=== PATIENT | female | born 1990 | race Caucasian/White ===

== ENCOUNTER 2020-07-22 08:02 | Inpatient (IN) | payer OTHER ==
[2020-07-22] MEDS ORDERED: Methylergonovine 0.2 MG/1 ML Amp IM PRN (10:55)
[2020-07-22] MEDS ORDERED: Misoprostol 200 MCG Tab PO PRN (10:55)
[2020-07-22] MEDS ORDERED: Water For Irrigation,Sterile 1,000 ML Container IRR PRN (10:55)
[2020-07-22] MEDS ORDERED: Nalbuphine 10 MG/1 ML Vial IVPUSH PRN (10:55)
[2020-07-22] MEDS ORDERED: Carboprost Tromethamine 250 MCG/1 ML Amp IM PRN (10:55)
[2020-07-22] MEDS ORDERED: Sodium Chloride 0.9% 10 ML Syringe FLUSH PRN (10:55)
[2020-07-22] MEDS ORDERED: Sodium Chloride 0.9% 10 ML SDV IV PRN (10:55)
[2020-07-22] MEDS ORDERED: Butorphanol 1 MG/ML SDV IVPUSH PRN (10:55)
[2020-07-22] MEDS ORDERED: Sodium Chloride 0.9% 2.5 ML Syringe FLUSH PRN (10:55)
[2020-07-22] MEDS ORDERED: Tranexamic Acid 1,000 MG in Sodium Chloride 0.9% 100 ML IV PRN (10:55)
[2020-07-22] MEDS ORDERED: Lidocaine 1% 50 ML MDV INJECT PRN (10:55)
[2020-07-22] MEDS ORDERED: Oxytocin/0.9 % Sodium Chloride 30 UNIT/500 ML BAG IV SCH (11:00)
[2020-07-22] MEDS: Lactated Ringers 1,000 ML IV SCH ×2 (14:48→15:28)
[2020-07-22] MEDS ORDERED: fentaNYL 100 MCG/2 ML SDV ONE (15:18)
[2020-07-22] MEDS ORDERED: Ropivacaine HCl/PF 100 ML ONE (15:18)
--- NOTE | 2020-07-22 15:39 | PCM.PREANE ---
Preanesthetic Assessment - Anesthesia/Transfusion/Family Hx Anesthesia History: Prior Anesthesia Without Reaction Family History of Anesthesia Reaction: No Transfusion History: No Prior Transfusion(s) - Physical Assessment NPO Status Date: 07/22/20 NPO Status Time: 10:00 Height: 1.78 m Weight: 97.522 kg ASA Class: 2 - Lab Values: Laboratory Last Values WBC 12.83 K/uL (4.0-11.0) H 07/22/20 10:53 RBC 4.66 M/uL (4.30-5.90) 07/22/20 10:53 Hgb 12.8 g/dL (12.0-16.0) 07/22/20 10:53 Hct 40.0 % (36.0-46.0) 07/22/20 10:53 MCV 85.8 fL (80.0-98.0) 07/22/20 10:53 MCH 27.5 pg (27.0-32.0) 07/22/20 10:53 MCHC 32.0 g/dL (31.0-37.0) 07/22/20 10:53 RDW Std Deviation 48.3 fl (28.0-62.0) 07/22/20 10:53 RDW Coeff of Richard 16 % (11.0-15.0) H 07/22/20 10:53 Plt Count 388 K/uL (150-400) 07/22/20 10:53 MPV 10.20 fL (7.40-12.00) 07/22/20 10:53 Nucleated RBC % 0.0 /100WBC 07/22/20 10:53 Nucleated RBCs # 0 K/uL 07/22/20 10:53 SARS-CoV-2 RNA (ESTHER) NEGATIVE (NEGATIVE) 07/22/20 09:22 Blood Type B POSITIVE 07/22/20 10:53 Antibody Screen NEGATIVE 07/22/20 10:53 - Allergies Allergies/Adverse Reactions: Allergies Allergy/AdvReac Type Severity Reaction Status Date / Time No Known Allergies Allergy Verified 07/22/20 09:03 - Acknowledgements Anesthesia Type Planned: Epidural Pt an Appropriate Candidate for the Planned Anesthesia: Yes Alternatives and Risks of Anesthesia Discussed w Pt/Guardian: Yes Pt/Guardian Understands and Agrees with Anesthesia Plan: Yes PreAnesthesia Questionnaire - SUBSTANCE USE Tobacco Use Status *Q: Never Tobacco User Recreational Drug Use History: No - HOME MEDS Home Medications: Home Meds Iron,Carbonyl/Ascorbic Acid [Iron 100-Vitamin C Tablet] 1 tab PO DAILY 07/22/20 [History] Letrozole 1 tab PO TID 07/22/20 [History] Levothyroxine 75 mcg PO ACBREAKFAST 07/22/20 [History] - CURRENT (IN HOUSE) MEDS Current Meds: Current Medications Butorphanol Tartrate (Stadol) 1 mg IVPUSH Q1H PRN PRN Reason: Pain Carboprost Tromethamine (Hemabate Ds) 250 mcg IM ASDIRECTED PRN PRN Reason: Post Hemorrhage Oxytocin/Sodium Chloride (Oxytocin 30 Unit/500 Ml-Ns) 30 unit in 500 mls @ 999 mls/hr IV TITRATE VISH Tranexamic Acid 1,000 mg/ (Sodium Chloride) 110 mls @ 660 mls/hr IV ONETIME PRN PRN Reason: Bleeding Lactated Ringer's (Ringers, Lactated) 1,000 mls @ 150 mls/hr IV ASDIRECTED VISH Last Admin: 07/22/20 15:28 Dose: 999 mls/hr Documented by: Lidocaine HCl (Xylocaine 1%) 50 ml INJECT ONETIME PRN PRN Reason: Laceration repair Methylergonovine Maleate (Methergine) 0.2 mg IM ASDIRECTED PRN PRN Reason: Post Hemorrhage Misoprostol (Cytotec) 200 mcg PO ONETIME PRN PRN Reason: Post Hemorrhage Nalbuphine HCl (Nubain) 10 mg IVPUSH Q1H PRN PRN Reason: Pain (severe 7-10) Sodium Chloride (Saline Flush) 10 ml FLUSH ASDIRECTED PRN PRN Reason: Keep Vein Open Sodium Chloride (Saline Flush) 2.5 ml FLUSH ASDIRECTED PRN PRN Reason: Keep Vein Open Sodium Chloride (Normal Saline) 10 ml IV ASDIRECTED PRN PRN Reason: IV Use Sterile Water (Sterile Water For Irrigation) 1,000 ml IRR ASDIRECTED PRN PRN Reason: delivery Discontinued Medications Fentanyl (Sublimaze) Confirm Administered Dose 100 mcg .ROUTE .STK-MED ONE Stop: 07/22/20 15:19 Ropivacaine (Naropin 0.2%) Confirm Administered Dose 100 mls @ as directed .ROUTE .STK-MED ONE Stop: 07/22/20 15:19
--- NOTE | 2020-07-22 15:42 | PCM.PRNOTE ---
- Free Text/Narrative Note: Anes Note Patient requests epidural for L&D. Sitting sterile technique. Chloraprep scrub to lumbar area. Level L3-L4 midline approach. Sterile fenstrated drape applied. Epidural space easily achieved single attempt with ease. JOSE ALFREDO at 3 cm. Cath threaded 6 cm with ease. Cath secured using sterile clear adhesive dressing. Test 1527 3 cc 1.5% lido with epi negative. 1530 Load 10 cc 0.2% ropivicaine with 1 mcg cc fentanyl in slow divided doses. 1535 Pumps started with 90 cc same solution. Rate is 8 cc hr with 6 cc q 20 min prn bolus. Phani well. Time with patient [id number] Olu Clements [employer]
[2020-07-22] MEDS ORDERED: Docusate Sodium 100 MG Cap PO PRN (22:14)
[2020-07-22] MEDS ORDERED: Acetaminophen 500 MG Tab PO PRN (22:14)
[2020-07-22] MEDS ORDERED: Benzocaine/Menthol 20%-0.5% Spray 78 GM Cannister TOP PRN (22:14)
[2020-07-22] MEDS ORDERED: Lanolin 100% Cream 7 GM Tube TOP PRN (22:14)
[2020-07-22] MEDS ORDERED: oxyCODONE 5 MG Tab PO PRN (22:14)
[2020-07-22] MEDS ORDERED: Bisacodyl 10 MG Supp RECTAL PRN (22:14)
[2020-07-22] MEDS ORDERED: Ibuprofen 400 MG Tab PO PRN (22:14)
--- NOTE | 2020-07-23 01:11 | OR ---
SURGEON: Igor Watkins MD DATE OF PROCEDURE: 07/22/2020 INDICATION FOR PROCEDURE: A 29-year-old G1, P0, at 40 weeks and 5 days, admitted in early labor. Patient presented with regular strong contractions that were every 3 to 4 minutes. She was found to be 3 cm dilated. Membranes were intact. She was monitored for about 2 hours and made cervical change to 4 cm and continued to contract regularly. She was admitted to Labor and Delivery for early labor and her COVID-19 test was negative. Her was complicated by infertility from anovulation due to PCOS. She received letrozole for ovulation induction, which helped to conceive. Otherwise had uncomplicated . She is GBS negative. AROM was performed for augmentation. She had meconium-stained fluid. She received an epidural with pain control. She continued to progress and became fully dilated with the urge to push. She had consistently category 1 tracing throughout, with occasional early decels with contractions. PREOPERATIVE DIAGNOSIS: Hartman intrauterine at 40 weeks and 5 days. POSTOPERATIVE DIAGNOSIS: Hartman intrauterine at 40 weeks and 5 days. PROCEDURES PERFORMED: Normal spontaneous vaginal delivery, repair of right mediolateral episiotomy. ANESTHESIA: Epidural. ANESTHESIOLOGIST: Dr. Tiana Mock. FINDINGS: Viable male infant, score of 9 and 9, weight of 9 pounds. Amniotic fluid was meconium stained. EBL: 300 mL. DESCRIPTION OF PROCEDURE: The patient pushed with contractions for about an hour. The head was ; she had good pushing effort, however, she was having difficulty because the vaginal introitus had a tight band posteriorly. Therefore, a right mediolateral episiotomy was performed and the patient continued to push. The head delivered in occiput-anterior position, restituted ROT. Anterior shoulder delivered easily followed by posterior shoulder and remaining body. No nuchal cord was noted. The baby was placed on maternal chest and evaluated by awaiting nursery staff. The baby was pink, crying and moving all extremities right after delivery. The umbilical cord was clamped and cut after 60 seconds and no longer pulsating. Umbilical cord gases were obtained. The placenta initially did not separate; therefore, the perineum was examined and she had a second-degree laceration from the episiotomy. Repair was done with 3-0 Vicryl in usual fashion. Hemostasis was confirmed after the repair. The placenta was then gently removed with traction on the umbilical cord and fundal massage. It was intact with 3-vessel cord. Uterus was firm and below the umbilicus and the bleeding was light. The patient tolerated the procedure well, was given care instruction. LIZETTE MARCELO /[id number] MTDLucía
[2020-07-23] MEDS: Witch Hazel Medicated Pads 40/Jar TOP PRN (01:45)
[2020-07-23] MEDS: Ibuprofen 800 MG Tab PO PRN ×2 (02:01→14:07)
--- NOTE | 2020-07-23 06:58 | PCM48HPAN ---
Post Anesthesia Note - EVALUATION WITHIN 48HRS OF ANESTHETIC Vital Signs in Normal Range: Yes Patient Participated in Evaluation: Yes Respiratory Function Stable: Yes Airway Patent: Yes Cardiovascular Function Stable: Yes Hydration Status Stable: Yes Pain Control Satisfactory: Yes Nausea and Vomiting Control Satisfactory: Yes Mental Status Recovered: Yes Vital Signs: Last Vital Signs Temp 35.9 C L 07/23/20 04:01 Pulse 85 07/23/20 04:01 Resp 16 07/23/20 04:01 BP 102/62 07/23/20 04:01 Pulse Ox 95 07/23/20 04:01
[2020-07-23] MEDS: Acetaminophen 500 MG Tab PO PRN ×2 (07:31→23:51)
--- NOTE | 2020-07-23 13:33 | PCM.PNPP ---
- General Info Date of Service: 07/23/20 Functional Status: Reports: Pain Controlled, Tolerating Diet, Ambulating, Urinating - Review of Systems General: Reports: No Symptoms HEENT: Reports: No Symptoms Pulmonary: Reports: No Symptoms Cardiovascular: Reports: No Symptoms Gastrointestinal: Reports: No Symptoms Genitourinary: Reports: No Symptoms Musculoskeletal: Reports: No Symptoms Skin: Reports: No Symptoms Neurological: Reports: No Symptoms Psychiatric: Reports: No Symptoms - Patient Data Vital Signs - Most Recent: Last Vital Signs Temp 36.3 C 07/23/20 07:35 Pulse 75 07/23/20 07:35 Resp 16 07/23/20 07:35 BP 113/70 07/23/20 07:35 Pulse Ox 93 L 07/23/20 07:35 Weight - Most Recent: 215 lb Lab Results - Last 24 Hours: Laboratory Results - last 24 hr 07/22/20 07/23/20 Range/Units 21:41 05:32 Hgb 10.2 L (12.0-16.0) g/dL Hct 32.3 L (36.0-46.0) % Cord ABG pH 7.279 (7.18-7.38) Cord ABG Base Excess -5 (-10--2) Cord VBG pH 7.383 (7.25-7.45) Cord VBG Base Excess -3 (-10--2) Med Orders - Current: Current Medications Acetaminophen (Tylenol Extra Strength) 500 mg PO Q4H PRN PRN Reason: Pain Acetaminophen (Tylenol Extra Strength) 1,000 mg PO Q4H PRN PRN Reason: Pain Last Admin: 07/23/20 07:31 Dose: 1,000 mg Documented by: Benzocaine/Menthol (Dermoplast Pain Relief 20%-0.5% [place]) 78 gm TOP ASDIRECTED PRN PRN Reason: Perineal Comfort Measure Last Admin: 07/23/20 01:44 Dose: 1 canister Documented by: Bisacodyl (Dulcolax) 10 mg RECTAL ONETIME PRN PRN Reason: Constipation Butorphanol Tartrate (Stadol) 1 mg IVPUSH Q1H PRN PRN Reason: Pain Carboprost Tromethamine (Hemabate Ds) 250 mcg IM ASDIRECTED PRN PRN Reason: Post Hemorrhage Docusate Sodium (Colace) 100 mg PO BID PRN PRN Reason: Constipation Emollient Ointment (Lansinoh Hpa) 0 gm TOP ASDIRECTED PRN PRN Reason: Sore Nipples Oxytocin/Sodium Chloride (Oxytocin 30 Unit/500 Ml-Ns) 30 unit in 500 mls @ 999 mls/hr IV TITRATE [facility] Last Admin: 07/22/20 21:42 Dose: 500 mls/hr Documented by: Tranexamic Acid 1,000 mg/ (Sodium Chloride) 110 mls @ 660 mls/hr IV ONETIME PRN PRN Reason: Bleeding Lactated Ringer's (Ringers, Lactated) 1,000 mls @ 150 mls/hr IV ASDIRECTED [facility] Last Infusion: 07/22/20 15:45 Dose: 150 mls/hr Documented by: Ibuprofen (Motrin) 400 mg PO Q4H PRN PRN Reason: Pain Ibuprofen (Motrin) 800 mg PO Q6H PRN PRN Reason: Pain Last Admin: 07/23/20 02:01 Dose: 800 mg Documented by: Lidocaine HCl (Xylocaine 1%) 50 ml INJECT ONETIME PRN PRN Reason: Laceration repair Methylergonovine Maleate (Methergine) 0.2 mg IM ASDIRECTED PRN PRN Reason: Post Hemorrhage Misoprostol (Cytotec) 200 mcg PO ONETIME PRN PRN Reason: Post Hemorrhage Nalbuphine HCl (Nubain) 10 mg IVPUSH Q1H PRN PRN Reason: Pain (severe 7-10) Oxycodone HCl (Oxycodone) 5 mg PO Q2H PRN PRN Reason: Pain Sodium Chloride (Saline Flush) 10 ml FLUSH ASDIRECTED PRN PRN Reason: Keep Vein Open Sodium Chloride (Saline Flush) 2.5 ml FLUSH ASDIRECTED PRN PRN Reason: Keep Vein Open Sodium Chloride (Normal Saline) 10 ml IV ASDIRECTED PRN PRN Reason: IV Use Sterile Water (Sterile Water For Irrigation) 1,000 ml IRR ASDIRECTED PRN PRN Reason: delivery Witmaría elena Orosco (Tucks) 1 pad TOP ASDIRECTED PRN PRN Reason: comfort care Last Admin: 07/23/20 01:45 Dose: 1 container Documented by: Discontinued Medications Fentanyl (Sublimaze) Confirm Administered Dose 100 mcg .ROUTE .STK-MED ONE Stop: 07/22/20 15:19 Last Admin: 07/22/20 16:52 Dose: Not Given Documented by: Ropivacaine (Naropin 0.2%) Confirm Administered Dose 100 mls @ as directed .ROUTE .STK-MED ONE Stop: 07/22/20 15:19 Last Admin: 07/22/20 16:52 Dose: Not Given Documented by: - Interaction Disposition, : Adrian at Bedside Infant Interaction: Holding Feeding: Attempted ; Nursed Fair/Poor Support Person: - Recovery Exam Fundal Tone: Firm Fundal Level: 2 Fingerbreadths Below Umbilicus Fundal Placement: Midline Lochia Amount: Scant Lochia Color: Rubra/Red Perineum Description: Intact, Minimal Bruising/Swelling, Other (see below) Other Perinuem Description: right mediolateral episiotomy Episiotomy/Laceration: Approximated Bladder Status: Voiding - Exam General: Alert, Oriented, Cooperative, No Acute Distress HEENT: Pupils Equal, Pupils Reactive Neck: Supple, Trachea Midline Lungs: Normal Respiratory Effort GI/Abdominal Exam: Normal Bowel Sounds, Soft, Non-Tender, No Organomegaly, No Distention Extremities: Normal Inspection, Normal Range of Motion, Non-Tender, No Pedal Yohannes ma Skin: Warm, Dry, Intact Wound/Incisions: Healing Well Neurological: No New Focal Deficit Psy/Mental Status: Alert, Normal Affect, Normal Mood - Problem List Review Problem List Initiated/Reviewed/Updated: Yes - My Orders Last 24 Hours: My Active Orders 07/22/20 22:14 Patient Status [ADT] Routine May Shower [RC] ASDIRECTED Up ad Raven [RC] ASDIRECTED Vital Signs [RC] PER UNIT ROUTINE Acetaminophen [Tylenol Extra Strength] 1,000 mg PO Q4H PRN Acetaminophen [Tylenol Extra Strength] 500 mg PO Q4H PRN Benzocaine/Menthol [Dermoplast Pain Relief 20%-0.5% [place]] 78 gm TOP ASDIRECTED PRN Docusate Sodium [Colace] 100 mg PO BID PRN Ibuprofen [Motrin] 400 mg PO Q4H PRN Ibuprofen [Motrin] 800 mg PO Q6H PRN Lanolin [Lansinoh HPA] See Dose Instructions TOP ASDIRECTED PRN bisacodyL [Dulcolax] 10 mg RECTAL ONETIME PRN oxyCODONE 5 mg PO Q2H PRN mati Orosco [[place]] 1 pad TOP ASDIRECTED PRN Assess Lochia [WOMSER] Per Unit Routine Assess Uterine Involution [WOMSER] Per Unit Routine Breast Pump [WOMSER] Per Unit Routine Peripheral IV Discontinue [OM.PC] Routine 07/22/20 22:15 Ice Therapy [OM.PC] Per Unit Routine Perineal Care [OM.PC] Per Unit Routine Sitz Bath [OM.PC] Per Unit Routine 07/22/20 22:16 Cooling Warming Measures [RC] ASDIRECTED 07/23/20 Breakfast Regular Diet [DIET] - Assessment Assessment:: 29yo PPD1 s/p , stable and recovering well. -tolerating PO, ambulating - Hgb 10.2, bleeding light, no s/s of anemia - and pumping Plan for discharge home tomorrow
[2020-07-24] MEDS: Ibuprofen 800 MG Tab PO PRN (09:05)
[2020-07-24] MEDS: Acetaminophen 500 MG Tab PO PRN (10:40)
[2020-07-24] MEDS: Witch Hazel Medicated Pads 40/Jar TOP PRN (10:52)
--- NOTE | 2020-07-24 11:19 | PCM.PNPP ---
- General Info Date of Service: 07/24/20 Functional Status: Reports: Pain Controlled, Tolerating Diet, Ambulating, Urinating - Review of Systems General: Reports: No Symptoms HEENT: Reports: No Symptoms Pulmonary: Reports: No Symptoms Cardiovascular: Reports: No Symptoms Gastrointestinal: Reports: No Symptoms Genitourinary: Reports: No Symptoms Musculoskeletal: Reports: No Symptoms Skin: Reports: No Symptoms Neurological: Reports: No Symptoms Psychiatric: Reports: No Symptoms - Patient Data Vital Signs - Most Recent: Last Vital Signs Temp 36.4 C 07/24/20 07:25 Pulse 72 07/24/20 07:25 Resp 18 07/24/20 07:25 BP 121/67 07/24/20 07:25 Pulse Ox 97 07/24/20 07:25 Weight - Most Recent: 215 lb Med Orders - Current: Current Medications Acetaminophen (Tylenol Extra Strength) 500 mg PO Q4H PRN PRN Reason: Pain Acetaminophen (Tylenol Extra Strength) 1,000 mg PO Q4H PRN PRN Reason: Pain Last Admin: 07/24/20 10:40 Dose: 1,000 mg Documented by: Benzocaine/Menthol (Dermoplast Pain Relief 20%-0.5% [place]) 78 gm TOP ASDIRECTED PRN PRN Reason: Perineal Comfort Measure Last Admin: 07/23/20 01:44 Dose: 1 canister Documented by: Bisacodyl (Dulcolax) 10 mg RECTAL ONETIME PRN PRN Reason: Constipation Butorphanol Tartrate (Stadol) 1 mg IVPUSH Q1H PRN PRN Reason: Pain Carboprost Tromethamine (Hemabate Ds) 250 mcg IM ASDIRECTED PRN PRN Reason: Post Hemorrhage Docusate Sodium (Colace) 100 mg PO BID PRN PRN Reason: Constipation Emollient Ointment (Lansinoh Hpa) 0 gm TOP ASDIRECTED PRN PRN Reason: Sore Nipples Oxytocin/Sodium Chloride (Oxytocin 30 Unit/500 Ml-Ns) 30 unit in 500 mls @ 999 mls/hr IV TITRATE VISH Last Admin: 07/22/20 21:42 Dose: 500 mls/hr Documented by: Tranexamic Acid 1,000 mg/ (Sodium Chloride) 110 mls @ 660 mls/hr IV ONETIME PRN PRN Reason: Bleeding Lactated Ringer's (Ringers, Lactated) 1,000 mls @ 150 mls/hr IV ASDIRECTED VISH Last Infusion: 07/22/20 15:45 Dose: 150 mls/hr Documented by: Ibuprofen (Motrin) 400 mg PO Q4H PRN PRN Reason: Pain Ibuprofen (Motrin) 800 mg PO Q6H PRN PRN Reason: Pain Last Admin: 07/24/20 09:05 Dose: 800 mg Documented by: Lidocaine HCl (Xylocaine 1%) 50 ml INJECT ONETIME PRN PRN Reason: Laceration repair Methylergonovine Maleate (Methergine) 0.2 mg IM ASDIRECTED PRN PRN Reason: Post Hemorrhage Misoprostol (Cytotec) 200 mcg PO ONETIME PRN PRN Reason: Post Hemorrhage Nalbuphine HCl (Nubain) 10 mg IVPUSH Q1H PRN PRN Reason: Pain (severe 7-10) Oxycodone HCl (Oxycodone) 5 mg PO Q2H PRN PRN Reason: Pain Sodium Chloride (Saline Flush) 10 ml FLUSH ASDIRECTED PRN PRN Reason: Keep Vein Open Sodium Chloride (Saline Flush) 2.5 ml FLUSH ASDIRECTED PRN PRN Reason: Keep Vein Open Sodium Chloride (Normal Saline) 10 ml IV ASDIRECTED PRN PRN Reason: IV Use Sterile Water (Sterile Water For Irrigation) 1,000 ml IRR ASDIRECTED PRN PRN Reason: delivery Witmaría elena Swain (Tucks) 1 pad TOP ASDIRECTED PRN PRN Reason: comfort care Last Admin: 07/24/20 10:52 Dose: 1 container Documented by: Discontinued Medications Fentanyl (Sublimaze) Confirm Administered Dose 100 mcg .ROUTE .STK-MED ONE Stop: 07/22/20 15:19 Last Admin: 07/22/20 16:52 Dose: Not Given Documented by: Ropivacaine (Naropin 0.2%) Confirm Administered Dose 100 mls @ as directed .ROUTE .STK-MED ONE Stop: 07/22/20 15:19 Last Admin: 07/22/20 16:52 Dose: Not Given Documented by: - Interaction Disposition, : at Bedside Interaction: Holding Infant Infant Feeding: Breastfed ; Nursed Well Support Person: - Recovery Exam Fundal Tone: Firm Fundal Level: 1 Fingerbreadths Below Umbilicus Fundal Placement: Midline Lochia Amount: Scant, Small Lochia Color: Rubra/Red Perineum Description: Intact, Minimal Bruising/Swelling, Other (see below) Other Perinuem Description: right mediolateral episiotomy Episiotomy/Laceration: Approximated Bladder Status: Voiding - Exam General: Alert, Oriented, Cooperative, No Acute Distress HEENT: Pupils Equal, Pupils Reactive Neck: Supple, Trachea Midline, No JVD Lungs: Normal Respiratory Effort GI/Abdominal Exam: Soft, Non-Tender, No Organomegaly, No Distention Extremities: Normal Inspection, Normal Range of Motion, Non-Tender, No Pedal Edema Skin: Warm, Dry, Intact Neurological: No New Focal Deficit Psy/Mental Status: Alert, Normal Affect, Normal Mood - Problem List Review Problem List Initiated/Reviewed/Updated: Yes - My Orders Last 24 Hours: My Active Orders 07/24/20 10:59 Ready for Discharge [RC] PER UNIT ROUTINE - Assessment Assessment:: 29yo PPD2 s/p , stable and recovering well. - Plan Plan:: -tolerating PO, ambulating - Hgb 10.2, bleeding light, no s/s of anemia - and pumping, baby doing well Plan for discharge home today, reviewed care instructions
== END 2020-07-24 12:50 | disposition home or self-care (01) | DRG 807 ==
LOC: MW.OBCHECK 08:02 → MW.OB 08:03 → MW.OBCHECK 08:03 → MW.OB 08:58 → MW.OBCHECK 10:55 → OBSVTOIN 22:14 → MW.OB 07-23 04:06
PROVIDERS: ADMIT Obstetrics & Gynecology; ATTEND Obstetrics & Gynecology
PROC: 10E0XZZ Delivery of Products of Conception, External Approach (ICD-10-PCS; principal; 2020-07-22)
PROC: 0W8NXZZ Division of Female Perineum, External Approach (ICD-10-PCS; 2020-07-22)
PROC: 10907ZC Drainage of Amniotic Fluid, Therapeutic from Products of Conception, Via Natural or Artificial Opening (ICD-10-PCS; 2020-07-22)
PROC: 3E0R3BZ Introduction of Anesthetic Agent into Spinal Canal, Percutaneous Approach (ICD-10-PCS; 2020-07-22)
PROC: 00HU33Z Insertion of Infusion Device into Spinal Canal, Percutaneous Approach (ICD-10-PCS; 2020-07-22)
DX: O77.0 Labor and delivery complicated by meconium in amniotic fluid (principal); Z37.0 Single live birth; Z3A.40 40 weeks gestation of pregnancy
CPT/HCPCS: 36415; 51702; 59025; 59409; 82803; 85014; 85018; 85027; 86592; 86850; 86900; 86901; A9270-GY; J2590; J7120; U0002

== ENCOUNTER 2020-08-07 17:38 | Emergency (ER) | payer OTHER ==
[2020-08-07] MEDS ORDERED: Sodium Chloride 0.9% 1,000 ML IV ONE ×2 (18:07→20:24)
[2020-08-07] MEDS ORDERED: Ondansetron 4 MG/2 ML SDV IVPUSH ONE (18:07)
--- NOTE | 2020-08-07 18:21 | EDM.PDOC ---
ED HPI GENERAL MEDICAL PROBLEM - General Chief Complaint: Gastrointestinal Problem Stated Complaint: FEVER, SICK Time Seen by Provider: 08/07/20 18:03 Source of Information: Reports: Patient History Limitations: Reports: No Limitations - History of Present Illness INITIAL COMMENTS - FREE TEXT/NARRATIVE: HISTORY AND PHYSICAL: History of present illness: Patient is a 29-year-old female who presents to the emergency room with complaints of fever, body aches, chills and bilateral breast tenderness. Patient states that she had a vaginal delivery 2 weeks ago. She has been heali ng as expected. She has noticed that she has been having to pump as she is not producing as much milk as she is used to, breast tenderness and warmth bilaterally. She states she started to develop fevers, body aches and bilateral breast tenderness this afternoon. She did call her STENCILER who prescribed her Dicloxacillin, she has taken 1 dose although had been vomiting afterwards. Unsure how much medication she was able to keep down. Patient denies any headache, change in vision, syncope or near syncope. Denies any neck pain/stiffness, chest pain, back pain, shortness of breath or cough. Denies any abdominal pain, diarrhea, constipation or dysuria. Has not noted any blood in urine or stool. States she has had light spotting post vaginal delivery - no concerns of excess bleeding or discharge. Patient has been eating and drinking appropriately. Review of systems: As per history of present illness and below otherwise all systems reviewed and negative. Past medical history: As per history of present illness and as reviewed below otherwise noncontributory. Surgical history: As per history of present illness and as reviewed below otherwise noncontributory. Social history: See social history for further information Family history: As per history of present illness and as reviewed below otherwise noncontributory. Physical exam: General: Well developed and well nourished 29 year old female. Alert and orientated x 3. Nontoxic in appearance and in no acute distress. Vital signs are stable and have been reviewed by me. Nursing notes were reviewed. HEENT: Atraumatic, normocephalic, pupils equal and reactive bilaterally, negative for conjunctival pallor or scleral icterus, mucous membranes moist, TMs normal bilaterally, throat clear, neck supple, nontender, trachea midline. No drooling or trismus noted. No meningeal signs. No hot potato voice noted. Lungs: Clear to auscultation, breath sounds equal bilaterally, chest nontender. Normal work of breathing, no accessory muscles used. Heart: S1S2, regular rate and rhythm without overt murmur Abdomen: Soft, nondistended, nontender. Negative for masses or hepatosplenomegaly. Negative for costovertebral tenderness. Skin: Generally pale. Mild breast erythema bilaterally from the 4:00 to 7 o'clock position, tender to touch. No nipple abnormal drainage. Remaining skin is intact, warm, dry. No lesions or rashes noted. Hematologic: No petechiae or purpra. Mucosa appropriate color and normal nail bed color and refill. Extremities: Atraumatic, moves all extremities per self without difficulty or deficits, negative for cords or calf pain. Neurovascular unremarkable. Neuro: Awake, alert, oriented. Cranial nerves II through XII unremarkable. Cerebellum unremarkable. Motor and sensory unremarkable throughout. Exam nonfocal. Psychiatric: Mood and affect are appropriate. Normal thought process. Answering questions appropriately. Notes: Patient's abdomen is soft, nontender and she states she is healing from her vaginal delivery as expected. Will do basic lab work and give IV fluids/medications. Patient is agreeable to diagnostics. Patient has a slight leukocytosis. Will give her a dose of rocephin while here. Patient feels improved after the IV fluids, still has some nausea. Will give IM phenergan and then a PO challenge. VSS. Patient has been able to keep fluids and crackers down. She felt improved and wanted to be discharged to home. As the patient was getting up to attempt to give a urine sample she became lightheaded and felt near syncopal. We will keep her for further observation until she feels improved. I did have Dr Cifuentes look at this patient due to change in patient status, he is agreeable with plan of care. Patient continues to have a fever. Will give patient some Tylenol/Ibuprofe n and additional fluids. Will continue to monitor. Upon reassessment of the patient, she has improved. She is appropriate for discharge. Patient will remain on her antibiotic that Dr Watkins has prescribed, since she had only had one dose thus far. Script for Zofran. We discussed in great length signs and symptoms that would prompt her to return to the ED. She will follow up with her OBGYN on Sunday. She is agreeable to plan of care and denies any further questions or concerns at this time. Diagnostics: CBC, CMP, UA, Lactate, BC x2, COVID Therapeutics: IV fluids, Rocephin, Zofran, Phenergan IM Prescription: Zofran Impression: Mastitis, bilateral Plan: 1. Today your exam and lab work demonstrates mastitis. Please apply gentle heat, massage, and SUPPORTIVE sports bra for comfort. Continue pumping both breasts routinely. 2. Continue taking your antibiotic as directed. Alternate Tylenol and Ibuprofen to keep your fevers down. 3. We encourage you to follow up with Dr Watkins (OBGYN) in the next few days for re-evaluation and further care/management. 4. If your symptoms should worsen, new symptoms develop or any of the signs and symptoms we discussed should arise please return to the emergency room or call 911 (if needed). Definitive disposition and diagnosis as appropriate pending reevaluation and review of above. breasts Pain Score (Numeric/FACES): 6 - Related Data Allergies Allergy/AdvReac Type Severity Reaction Status Date / Time No Known Allergies Allergy Verified 08/07/20 17:52 Home Meds: Home Meds Iron,Carbonyl/Ascorbic Acid [Iron 100-Vitamin C Tablet] 1 tab PO DAILY 07/22/20 [History] Levothyroxine 75 mcg PO ACBREAKFAST 07/22/20 [History] Ibuprofen [Motrin] 600 mg PO Q6H PRN #20 tab 07/24/20 [Rx] Dicloxacillin 500 mg PO ASDIRECTED 08/07/20 [History] Ondansetron [Zofran ODT] 4 mg PO Q6H PRN #8 tab.dis 08/07/20 [Rx] Past Medical History - Past Health History Medical/Surgical History: Denies Medical/Surgical History Gastrointestinal History: Reports: None STENCILER History: Reports: Endocrine/Metabolic History: Reports: Hypothyroidism - Infectious Disease History Infectious Disease History: Reports: Chicken Pox - Past Surgical History GI Surgical History: Reports: Appendectomy Social & Family History - Family History OBGYN: Reports: Endocrine/Metabolic: Reports: Diabetes, type II Oncologic: Reports: Brain, Prostate - Caffeine Use Caffeine Use: Reports: None ED ROS GENERAL - Review of Systems Review Of Systems: Comprehensive ROS is negative, except as noted in HPI. ED EXAM, GENERAL - Physical Exam Exam: See Below (See dictation) Course - Vital Signs Last Recorded V/S: Last Vital Signs Temp 101.5 F H 08/07/20 21:01 Pulse 108 H 08/07/20 21:00 Resp 20 08/07/20 21:00 BP 107/63 08/07/20 21:00 Pulse Ox 95 08/07/20 21:00 - Orders/Labs/Meds Orders: Active Orders 24 hr Category Date Time Status CULTURE BLOOD [BC] Stat Lab 08/07/20 18:21 Received CULTURE BLOOD [BC] Stat Lab 08/07/20 18:25 Received Blood Culture x2 Reflex Set [OM.PC] Stat Oth 08/07/20 18:07 Ordered Labs: Laboratory Tests 08/07/20 08/07/20 08/07/20 Range/Units 17:47 17:47 17:47 WBC 12.51 H (4.0-11.0) K/uL RBC 5.14 (4.30-5.90) M/uL Hgb 14.0 (12.0-16.0) g/dL Hct 43.6 (36.0-46.0) % MCV 84.8 (80.0-98.0) fL MCH 27.2 (27.0-32.0) pg MCHC 32.1 (31.0-37.0) g/dL RDW Std Deviation 46.6 (28.0-62.0) fl RDW Coeff of Richard 15 (11.0-15.0) % Plt Count 328 (150-400) K/uL MPV 8.70 (7.40-12.00) fL Neut % (Auto) 93.5 H (48.0-80.0) % Lymph % (Auto) 2.9 L (16.0-40.0) % Adams % (Auto) 3.2 (0.0-15.0) % Eos % (Auto) 0.3 (0.0-7.0) % Baso % (Auto) 0.1 (0.0-1.5) % Neut # (Auto) 11.7 H (1.4-5.7) K/uL Lymph # (Auto) 0.4 L (0.6-2.4) K/uL Adams # (Auto) 0.4 (0.0-0.8) K/uL Eos # (Auto) 0.0 (0.0-0.7) K/uL Baso # (Auto) 0.0 (0.0-0.1) K/uL Nucleated RBC % 0.0 /100WBC Nucleated RBCs # 0 K/uL Lactate 1.5 (0.20-2.00) mmol/L Sodium 140 (136-145) mmol/L Potassium 3.3 L (3.5-5.1) mmol/L Chloride 101 (98-107) mmol/L Carbon Dioxide 25.1 (21.0-32.0) mmol/L BUN 12 (7.0-18.0) mg/dL Creatinine 1.2 H (0.6-1.0) mg/dL Est Cr Clr Drug Dosing 75.48 mL/min Estimated GFR (MDRD) 53.5 ml/min Glucose 112 H (74-106) mg/dL Calcium 10.0 (8.5-10.1) mg/dL Total Bilirubin 0.9 (0.2-1.0) mg/dL AST 22 (15-37) IU/L ALT 30 (14-63) IU/L Alkaline Phosphatase 140 H (46-116) U/L Total Protein 8.2 (6.4-8.2) g/dL Albumin 3.7 (3.4-5.0) g/dL Globulin 4.5 H (2.6-4.0) g/dL Albumin/Globulin Ratio 0.8 L (0.9-1.6) Influenza Type A RNA (NEGATIVE) Influenza Type B RNA (NEGATIVE) SARS-CoV-2 RNA (ESTHER) (NEGATIVE) 08/07/20 Range/Units 19:29 WBC (4.0-11.0) K/uL RBC (4.30-5.90) M/uL Hgb (12.0-16.0) g/dL Hct (36.0-46.0) % MCV (80.0-98.0) fL MCH (27.0-32.0) pg MCHC (31.0-37.0) g/dL RDW Std Deviation (28.0-62.0) fl RDW Coeff of Richard (11.0-15.0) % Plt Count (150-400) K/uL MPV (7.40-12.00) fL Neut % (Auto) (48.0-80.0) % Lymph % (Auto) (16.0-40.0) % Adams % (Auto) (0.0-15.0) % Eos % (Auto) (0.0-7.0) % Baso % (Auto) (0.0-1.5) % Neut # (Auto) (1.4-5.7) K/uL Lymph # (Auto) (0.6-2.4) K/uL Adams # (Auto) (0.0-0.8) K/uL Eos # (Auto) (0.0-0.7) K/uL Baso # (Auto) (0.0-0.1) K/uL Nucleated RBC % /100WBC Nucleated RBCs # K/uL Lactate (0.20-2.00) mmol/L Sodium (136-145) mmol/L Potassium (3.5-5.1) mmol/L Chloride (98-107) mmol/L Carbon Dioxide (21.0-32.0) mmol/L BUN (7.0-18.0) mg/dL Creatinine (0.6-1.0) mg/dL Est Cr Clr Drug Dosing mL/min Estimated GFR (MDRD) ml/min Glucose (74-106) mg/dL Calcium (8.5-10.1) mg/dL Total Bilirubin (0.2-1.0) mg/dL AST (15-37) IU/L ALT (14-63) IU/L Alkaline Phosphatase (46-116) U/L Total Protein (6.4-8.2) g/dL Albumin (3.4-5.0) g/dL Globulin (2.6-4.0) g/dL Albumin/Globulin Ratio (0.9-1.6) Influenza Type A RNA NEGATIVE (NEGATIVE) Influenza Type B RNA NEGATIVE (NEGATIVE) SARS-CoV-2 RNA (ESTHER) NEGATIVE (NEGATIVE) Meds: Medications Discontinued Medications Generic Name Dose Route Start Last Admin Trade Name Freq PRN Reason Stop Dose Admin Acetaminophen 1,000 mg 08/07/20 20:29 08/07/20 20:31 Tylenol Extra Strength PO 08/07/20 20:30 1,000 mg ONETIME ONE Administration Sodium Chloride 1,000 mls @ 999 mls/hr 08/07/20 18:07 08/07/20 18:13 Normal Saline IV 08/07/20 19:07 999 mls/hr STAT ONE Administration Ceftriaxone Sodium/Dextrose 1 50 mls @ 100 mls/hr 08/07/20 19:08 08/07/20 19:15 gm/ Premix IV 08/07/20 19:37 100 mls/hr ONETIME ONE Administration Sodium Chloride 1,000 mls @ 999 mls/hr 08/07/20 20:24 08/07/20 20:26 Normal Saline IV 08/07/20 21:24 999 mls/hr STAT ONE Administration Ketorolac Tromethamine 30 mg 08/07/20 20:28 08/07/20 20:31 Toradol IVPUSH 08/07/20 20:29 30 mg ONETIME ONE Administration Morphine Sulfate 2 mg 08/07/20 18:42 08/07/20 18:56 Morphine IVPUSH 08/07/20 18:43 Not Given ONETIME ONE Ondansetron HCl 4 mg 08/07/20 18:07 08/07/20 18:13 Zofran IVPUSH 08/07/20 18:08 4 mg ONETIME ONE Administration Promethazine HCl 25 mg 08/07/20 18:54 08/07/20 19:02 Phenergan IM 08/07/20 18:55 25 mg ONETIME ONE Administration Departure - Departure Time of Disposition: 21:12 Disposition: Home, Self-Care 01 Clinical Impression: Mastitis - Discharge Information Prescriptions: Ondansetron [Zofran ODT] 4 mg PO Q6H PRN #8 tab.dis PRN Reason: Nausea Instructions: Mastitis, [id number] Referrals: PCP,None [Primary Care Provider] - Forms: ED Department Discharge Additional Instructions: The following information is given to patients seen in the emergency department who are being discharged to home. This information is to outline your options for follow-up care. We provide all patients seen in our emergency department with a follow-up referral. The need for follow-up, as well as the timing and circumstances, are variable depending upon the specifics of your emergency department visit. If you don't have a primary care physician on staff, we will provide you with a referral. We always advise you to contact your personal physician following an emergency department visit to inform them of the circumstance of the visit and for follow-up with them and/or the need for any referrals to a consulting specialist. The emergency department will also refer you to a specialist when appropriate. This referral assures that you have the opportunity for follow-up care with a specialist. All of these measure are taken in an effort to provide you with optimal care, which includes your follow-up. Under all circumstances we always encourage you to contact your private physician who remains a resource for coordinating your care. When calling for follow-up care, please make the office aware that this follow-up is from your recent emergency room visit. If for any reason you are refused follow-up, please contact the [facility] at and asked to speak to the emergency department charge nurse. [facility] [address] [place] [id number] [id number] Thank you for choosing the [facility] emergency department in [place] for your medical needs today. It was a pleasure caring for you. Today you were seen in the emergency department for fever, nausea and vomiting. 1. Today your exam and lab work demonstrates mastitis. Please apply gentle heat, massage, and SUPPORTIVE sports bra for comfort. Continue pumping both breasts routinely. 2. Continue taking your antibiotic as directed. Alternate Tylenol and Ibuprofen to keep your fevers down. 3. We encourage you to follow up with Dr Watkins (OBGYN) in the next few days for re-evaluation and further care/management. 4. If your symptoms should worsen, new symptoms develop or any of the signs and symptoms we discussed should arise please return to the emergency room or call 911 (if needed). Sepsis Event Note (ED) - Evaluation Sepsis Screening Result: Possible Sepsis Risk - My Orders Last 24 Hours: My Active Orders 08/07/20 18:07 Blood Culture x2 Reflex Set [OM.PC] Stat 08/07/20 18:21 CULTURE BLOOD [BC] Stat 08/07/20 18:25 CULTURE BLOOD [BC] Stat - Assessment/Plan Last 24 Hours: My Active Orders 08/07/20 18:07 Blood Culture x2 Reflex Set [OM.PC] Stat 08/07/20 18:21 CULTURE BLOOD [BC] Stat 08/07/20 18:25 CULTURE BLOOD [BC] Stat
[2020-08-07 18:27] LABS: CARBON DIOXIDE,CO2 25.1 mmol/L (21.0-32.0); POTASSIUM,K 3.3 mmol/L (3.5-5.1)
[2020-08-07] MEDS ORDERED: Morphine 2 MG/ML SYRINGE IVPUSH ONE (18:42)
[2020-08-07] MEDS ORDERED: Promethazine 25 MG/ML SDV IM ONE (18:54)
[2020-08-07] MEDS ORDERED: cefTRIAXone 1 GM in Premix Bag 1 BAG IV ONE (19:08)
[2020-08-07 20:16] LABS: CORONAVIRUS COVID-19 NAA NEGATIVE (NEGATIVE); INFLUENZA A NAA NEGATIVE (NEGATIVE); INFLUENZA B NAA NEGATIVE (NEGATIVE)
[2020-08-07] MEDS ORDERED: Ketorolac 30 MG/ML SDV IVPUSH ONE (20:28)
[2020-08-07] MEDS ORDERED: Acetaminophen 500 MG Tab PO ONE (20:29)
--- NOTE | 2020-08-07 20:55 | PCM.SN.2 ---
- Free Text/Narrative Note: EKG: As interpreted by ER physician: Esau: Nonspecific ST-T wave abnormalities Normal axis No evidence of ST elevation [place] Normal sinus tachycardia heart rate of 121
== END 2020-08-07 21:24 | disposition home or self-care (01) ==
LOC: MW.ED 17:38
DX: O91.22 Nonpurulent mastitis associated with the puerperium (principal); E03.9 Hypothyroidism, unspecified; Z79.899 Other long term (current) drug therapy; Z20.822 Contact with and (suspected) exposure to COVID-19
CPT/HCPCS: 0240U; 36415; 80053; 83605; 85025; 87040; 93005; 96365; 96372; 96375; 99284; A9270; J0696; J1885; J2405; J2550; J7030; 93010